=== PATIENT | female | born 1940 | race Caucasian/White ===

== ENCOUNTER 2016-05-19 09:30 | Inpatient (IN) | payer MEDICARE, OTHER ==
--- NOTE | 2016-05-15 18:53 | PREOPHP ---
DATE OF ADMISSION: 05/20/2016 The patient is coming on Monday for a surgical procedure. HISTORY OF PRESENT ILLNESS: This is a 75-year-old age, 0, para 0, abortions 0. This patien t had a history of previous total abdominal hysterectomy and right salpingo-oophorectomy, appendecto my, right knee surgery, left ovarian cyst. This patient had been complaining of some mass that is c oming out of her vagina with constipation. She is hypertensive with hypercholesterol and she was fo und to have a vaginal atrophy with a large rectocele. The patient was advised to have this procedur e done, her rectocele repair, if she was symptomatic. She states that she has pain, extremely sympt omatic recently, with severe constipation and inability to have a normal life since she feels that p ressure constantly in the rectum. The patient was a chronic smoker with sleep apnea as well. She h as been seeing Dr. Cat. She had a previous cervical cancer and a [facility] RSO, early cancer. She is o n thyroid medication and medication for her blood pressure and estrogen cream. The patient also had an appendectomy and right knee surgery. SOCIAL HISTORY: She only drinks occasionally socially and she still smokes sometimes. ALLERGIES: SHE HAS NO KNOWN ALLERGIES. MEDICATIONS: 1. Benazepril 10 mg. 2. Carvedilol 25 mg. 3. Levothyroxine 100 mcg. 4. Zetia 10 mg. PHYSICAL EXAMINATION: VITAL SIGNS: She is 64 inches. She weighs 130 pounds. BMI is 22.4. Blood pressure has been contr olled to 140/90, and she is afebrile. GENERAL APPEARANCE: Good. EAR, NOSE, AND THROAT. Normal. NECK: Normal. CHEST: Clear. HEART: Normal sinus rhythm. LUNGS: Clear. ABDOMEN: Soft, nontender. No masses. GENITALIA: With an absent uterus with a very large rectocele that is protruding to a grade III to I V. EXTREMITIES: Normal with normal pulses. No edema. RECTAL: Noncontributory. PLAN: The patient is advised for a large rectocele repair. She has been advised of the possible ri sks and possible complications of the procedure with her alternatives and options. Written informat ion was provided. She had no more questions and agreed to go ahead with the procedure with full und erstanding and no more questions. Dictated By: SHYANN MEJIAS/WILFRID Conf#: [id number] DID#: [id number]
[~2016-05-19] VITALS: Ht 162.6 cm; Wt 57.7 kg
--- NOTE | 2016-05-25 09:45 | CONS ---
DATE OF ADMISSION: 06/23/2016 DATE OF CONSULTATION: 05/20/2016 PREOPERATIVE MEDICAL CONSULTATION: SCHEDULED DATE OF SURGERY: 05/20/2016. Dear Dr. Kim: Thank you very much for allowing me to participate in the care of Ms. Thompson. She is a charming 75 -year-old female who is being brought in electively by yourself for rectocele repa ir. It is my understanding this will be a posterior approach. PAST MEDICAL HISTORY: 1. Chronic obstructive pulmonary disease. 2. Rectocele. 3. History of Graves' disease with Graves' ophthalmopathy. 4. Status post I-131 ablation with hypothyroidism. 5. Usual childhood diseases. 6. Organic heart disease - CHF, systolic and diastolic. 7. Obstructive sleep apnea. 8. Hyperlipidemia. 9. Vitamin D deficiency. 10. Remote history of TIA. 11. Osteoporosis. 12. Colonic polyposis. 13. Osteoarthrosis/DJD. 14. Allergic rhinitis. 15. Status post orbital decompression surgery. 16. Status post appendectomy. 17. Status post ____. 18. Status post sinus surgery. 19. Status post T and A. ALLERGIES: SHE HAS NO KNOWN MEDICAL ALLERGIES, BUT SHE IS INTOLERANT OF STATINS AND SEPARATELY INTO LERANT OF FIBRATES AND SEPARATELY INTOLERANT OF NIACIN. MEDICATIONS: 1. She has a CPAP device. 2. Lisinopril 40 mg a day. 3. Carvedilol 25 b.i.d. 4. Raloxifene 60 mg a day. 3. Levothyroxine 88 mcg a day. 4. Zetia 10 mg a day. HABITS: She smokes 8 to 10 cigarettes a day. No alcohol, 1 to 2 cups of coffee per day. No usage of recreational drugs. VACCINES: She had tetanus and pneumococcal vaccines administered 03/23/2008. SOCIAL HISTORY: She was born in [place], [place] and raised there. She has 3 years of college without experience. 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 She is and lives alone. FAMILY HISTORY: Negative for coronary artery disease, negative for diabetes, positive for hypertens ion, positive for stroke. Negative for asthma, negative for glaucoma. Positive for migraine, posit sincere for melanoma, negative for colon cancer, negative for breast cancer, negative for anesthesia cal ctions. REVIEW OF SYSTEMS: HEAD AND EYES: Fully negative. ENT: Negative. RESPIRATORY: Negative. CARDIAC: Negative. GASTROINTESTINAL: Negative. Her last colonoscopy was 02/2011 and negative. HEMATOLOGIC: Fully negative. UROLOGIC: Negative. GYNECOLOGIC: Negative. She is G0, P0, AB 0. MUSCULOSKELETAL: Negative. NEUROLOGIC: Negative. PSYCHIATRIC: Negative. ENDOCRINE: Negative. DERMATOLOGIC: Negative. PHYSICAL EXAMINATION: GENERAL: At the time of physical exam, she has a height of 5 feet 4 1/2 inches, weight 128.7, tempe rature 98.2, pulse 64, blood pressure is 120/80. HEENT: NC/AT; PERRL, EOMI, anicteric, fundi are without ____; tympanic membranes are without ____; oropharynx demonstrates no lesions. NECK: Supple. There is a midline trachea. There is no thyromegaly; pulses are 2+ without bruits. RESPIRATORY: Clear to auscultation and percussion. CARDIAC: Demonstrates no JVD, a regular rate and rhythm without rubs, murmurs or gallops. However, she does have a PMI that is diffuse and laterally displaced. ABDOMEN: Soft, nontender, active bowel sounds, no hepatosplenomegaly, no CVA tenderness, no hernias and no bruits; pelvic and rectal exams are as per the dictation of Dr. Kim. NEUROLOGIC: Nonfocal. LABORATORY DATA: Sodium 146, potassium 4.1, chloride 104, bicarbonate 26, BUN 19, creatinine 0.8, r andom blood sugar 106. White count 9.4, hemoglobin 14.9, hematocrit 45.7, platelet count 222. Prot sky 11.6 with an INR of 0.99, PTT is 28 seconds. Urinalysis 1.010, pH of 6, dipsticks negative. EK G demonstrates sinus rhythm at 60 with intervals 0.18, 0.15, 0.46 and axis of -15 degrees, left bund le branch block with LAFH, chest x-ray was unremarkable. ASSESSMENT AND PLAN: Preoperative medical consultation prior to elective rectocele repair. At this time, I find Ms. Thompson to be an acceptable surgical candidate and concur with your plans to proceed with surgery. She is at average surgical risk to slightly above-average surgical risk as compared to her age-matched peers. This is on the basis of the known cardiac dysfunction. She should do wel l using the standard and routine anesthesia precautions. Please see be aware, however, of the volum e status as you work with her. Respectively yours, Dictated By: YADIRA FLANNERY MD, JR/WILFRID Conf#: [id number] DID#: [id number] CC: SHYANN KIM MD;*EndCC*
--- NOTE | 2016-06-19 02:50 | PREOPHP ---
DATE OF ADMISSION: 06/23/2016 HISTORY OF PRESENT ILLNESS: This is a 75-year-old female, 0, para 0. This patient had a hi story of a previous abdominal hysterectomy, right salpingo-oophorectomy, appendectomy, right knee santos rgery, left ovarian cyst. The patient has been complaining of a mass that was protruding out of her vagina with constipation. She is hypertensive with high cholesterol. She was found to have vagina l atrophy with a large rectocele. The patient was advised to have this procedure done and she has b een stating that she has severe constipation and inability to have a normal life since she feels thi s vaginal pressure constantly. The patient was a chronic smoker with sleep apnea. She was seen by Dr. Cat. She had previous cervical cancer and a [facility] RSO was done because of that. She is on thyr oid medication and medication for blood pressure and estrogen cream. The patient also had an append ectomy and right knee surgery. SOCIAL HISTORY: She does not drink, and she still smokes. ALLERGIES: SHE IS NOT ALLERGIC TO ANY MEDICATIONS. MEDICATIONS: 1. Benazepril 10 mg. 2. Carvedilol 25. 3. Levothyroxine 100. 4. Zetia 10 mg. PHYSICAL EXAMINATION: VITAL SIGNS: She is 64 inches. She weighs 130. Her BMI is 22.4. Blood pressure has been controll ed to 140/90 and she is afebrile. GENERAL APPEARANCE: Good. EAR, NOSE AND THROAT: Normal. NECK: Normal. normal. CHEST: Clear. HEART: Normal sinus rhythm. LUNGS: Clear. ABDOMEN: Soft, nontender, no masses. GENITALIA: With an absent uterus with a very large rectocele that is protruding to a grade III to I V. EXTREMITIES: Normal with no edema. RECTAL: Noncontributory. The patient has been advised to have a rectocele repair. DIAGNOSES: 1. Rectocele grade III to IV. 2. Constipation. PLAN: She has been advised of the possible risks and possible complications of the procedure with h er alternatives and options. Written information was provided. She had no more questions and agree d to go ahead with the procedure with full understanding and no more questions. Dictated By: SHYANN MEJIAS/NTS Conf#: [id number] DID#: [id number]
--- NOTE | 2016-06-21 15:08 | CONS ---
DATE OF ADMISSION: 06/23/2016 DATE OF CONSULTATION: TYPE OF CONSULTATION: Preoperative medical SCHEDULED DATE OF SURGERY: 06/23/[address] Abarca, Thank you very much for allowing me to participate in the care of Ms. Thompson. She is a charming 75-y ear-old female who is being brought in electively by yourself for a rectocele repair/poste rior repair. At this time, she informs me that she is doing relatively well. She has not had any s ignificant bleeding. She denies any fever, chills, or sweats or any weight loss. PAST MEDICAL HISTORY: 1. Chronic obstructive pulmonary disease. 2. Rectocele. 3. Graves' disease. 4. Status post I-131 with hypothyroidism. 5. Graves' ophthalmopathy 6. Usual childhood diseases. 7. 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 8. Obstructive sleep apnea. 9. Hyperlipidemia. 10. Vitamin D deficiency. 11. Remote history of transient ischemic attack. 12. Osteoporosis. 13. Colon polyps. 14. Osteoarthrosis/DJD. 15. Allergic rhinitis. 16. Status post orbital decompression surgery for Graves' ophthalmopathy. 17. Status post appendectomy. 18. Status post CE and IOL left eye. 19. Status post T and A. 20. Status post sinus surgery. ALLERGIES: SHE HAS NO KNOWN MEDICAL ALLERGIES, BUT SHE IS INTOLERANT OF STATINS, FIBRATES AND NIACI N. CURRENT MEDICATION REGIMEN: 1. Lisinopril 40 mg once a day. 2. Carvedilol 25 mg b.i.d. 3. Raloxifene 60 mg once a day. 4. Levothyroxine 88 mcg once a day. 5. She wears a CPAP device at night. HABITS: She smokes 1/2 pack of cigarettes per day. No alcohol, no recreational drugs. SOCIAL HISTORY: She was born in [place], [place] and raised there. She has 3 years of college without experience. She is . 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 FAMILY HISTORY: Negative for coronary artery disease. Negative for diabetes. Positive for hyperte nsion. Positive for stroke. Negative for asthma. Negative for glaucoma. Positive for migraine. Positive for melanoma. Negative for colon cancer. Negative for breast cancer. Negative for anesth esia reactions. REVIEW OF SYSTEMS: HEAD AND EYES: Fully negative. ENT: Negative. RESPIRATORY: Negative. CARDIAC: Negative. She can climb 3 flights of stairs. GASTROINTESTINAL: Negative. She had negative colonoscopy in 02/2011. HEMATOLOGIC: Negative. UROLOGIC: Negative. GYNECOLOGIC: Negative. She is G0, P0, AB0. PSYCHIATRIC: Negative. ENDOCRINE: Negative. NEUROLOGIC: Negative. GENERAL: Without note. PHYSICAL EXAMINATION: VITAL SIGNS: At the time of physical exam, she has a height of 5 feet 4-3/4 inches, weight 130.2, b lood pressure 154/80, pulse 80, temperature 98.4, respirations 16. HEENT: NC/AT; PERRL, EOMI, anicteric, fundi are without note; tympanic membranes are without note; oropharynx demonstrates no lesions. NECK: Supple. There is a midline trachea. There is no thyromegaly; pulses are 2+ without bruits. RESPIRATORY: Clear to auscultation and percussion. CARDIAC: Demonstrates no JVD, a regular rate and rhythm. There are no gallops. PMI is diffuse and laterally displaced. ABDOMEN: Soft, nontender, active bowel sounds, no hepatosplenomegaly, no CVA tenderness, no hernias and no bruits. EXTREMITIES: Demonstrate no clubbing, cyanosis, or edema. NEUROLOGIC: Nonfocal. PELVIC AND RECTAL: Are as per the dictation of Dr. Abarca. LABORATORY DATA: Sodium 144, potassium 3.9, chloride 104, bicarbonate 21, BUN 14, creatinine 0.6, r andom blood sugar 76. White count 7.6, hemoglobin 15.1, hematocrit 46.4, platelet count is 207. Pr o time 11.6 with an INR of 0.99, PTT is 32 seconds. Urinalysis 1.025, pH of 6, dipsticks negative. EKG is sinus at 60 with intervals 0.18, 0.15, 0.46 and axis of -15 degrees, left bundle branch bloc k and left anterior superior hemiblock. Imaging studies are attached. ASSESSMENT AND PLAN: Preoperative medical consultation prior to elective posterior repair for recto jt. At this time, I find Ms. Thompson to be an acceptable surgical candidate and concur with your pl ans to proceed with surgery. She is at average surgical risk as compared to her age-matched peers a nd should do well using all standard and routine anesthesia precautions. Please note that her main risk will be from cardiac issues. However, she is well compensated at this time. Respectively yours, Dictated By: YADIRA FLANNERY MD, JR/WILFRID Conf#: [id number] DID#: [id number]
[2016-06-23] VITALS (23 sets, daily range): BP systolic 122–167; BP diastolic 60–80; PULSE 53–70; RESP 16–21; Ht 162.6 cm; Wt 57.7 kg
[2016-06-23] MEDS ORDERED: CEFAZOLIN 2 GM/50 ML (PMX) 50 ML IVPB ONE (05:30)
[2016-06-23] MEDS ORDERED: BENA40TA41 PO (06:51)
[2016-06-23] MEDS ORDERED: CARV25TA79 PO (06:51)
[2016-06-23] MEDS ORDERED: EZET10TA3 PO (06:51)
[2016-06-23] MEDS ORDERED: LEVO88TA3 PO (06:51)
[2016-06-23] MEDS ORDERED: LIDOCAINE 1%/EPI 30 ML INJ ONE (07:07)
[2016-06-23] MEDS ORDERED: THROMBIN 5000 UNIT VIAL ONE (07:07)
--- NOTE | 2016-06-23 08:00 | HPN ---
Date/Time of Note Date/Time of Note DATE: 06/23/16 TIME: 08:00 Interval H&P Admission Note Pt. seen H&P reviewed: No system changes SHYANN KIM MD Jun 23, 2016 08:00
[2016-06-23] MEDS ORDERED: MEPERIDINE 100 MG INJ ONE (08:01)
[2016-06-23] MEDS ORDERED: LIDOCAINE 2% (SDV) 5 ML INJ ONE (08:01)
[2016-06-23] MEDS ORDERED: PROPOFOL 20 ML ONE (08:01)
[2016-06-23] MEDS ORDERED: CEFAZOLIN 1 GM INJ ONE (08:16)
[2016-06-23] MEDS ORDERED: ATROPINE 1 MG/10 ML SYRINGE ONE (08:16)
[2016-06-23] MEDS ORDERED: HYDROmorphONE 1 MG/ML SYG IV PRN (08:30)
[2016-06-23] MEDS ORDERED: ZOLPIDEM 5 MG TAB PO PRN (08:30)
[2016-06-23] MEDS ORDERED: KETOROLAC 30 MG INJ IV PRN (08:30)
[2016-06-23] MEDS ORDERED: HYDROCODONE/APAP (5/325) TAB PO PRN (08:30)
[2016-06-23] MEDS ORDERED: DIPHENHYDRAMINE 50 MG CAP PO PRN (08:30)
[2016-06-23] MEDS ORDERED: EPHEDrine SULFATE 50 MG/5 ML SYG ONE (08:32)
[2016-06-23] MEDS: BENAZEPRIL 40 MG TAB PO SCH (09:00)
[2016-06-23] MEDS: EZETIMIBE 10 MG TAB PO SCH (09:00)
[2016-06-23] MEDS ORDERED: FENTAnyl 50 MCG/ML VIAL IV PRN ×2 (09:30)
[2016-06-23] MEDS ORDERED: LABETALOL HCL 20MG INJ IV PRN (09:30)
[2016-06-23] MEDS ORDERED: ONDANSETRON 4 MG INJ IV PRN (09:30)
[2016-06-23] MEDS ORDERED: hydrALAzine 20 MG INJ IV PRN (09:30)
[2016-06-23] MEDS ORDERED: MIDAZOLAM 1 MG/ML 2 ML INJ IV PRN (09:30)
[2016-06-23] MEDS ORDERED: morphine (1 MG/ML) 10ML SYRINGE IV PRN ×2 (09:30)
[2016-06-23] MEDS ORDERED: HYDROmorphONE (0.2 MG/ML) 10ML SYG IV PRN ×2 (09:30)
[2016-06-23] MEDS ORDERED: METOCLOPRAMIDE 10 MG INJ IV PRN (09:30)
[2016-06-23] MEDS ORDERED: EPHEDrine SULFATE 50 MG/5 ML SYG IV PRN (09:30)
[2016-06-23] MEDS ORDERED: MEPERIDINE 25 MG INJ IV PRN (09:30)
[2016-06-23] MEDS ORDERED: DIPHENHYDRAMINE 50 MG INJ IV PRN (09:30)
--- NOTE | 2016-06-23 09:37 | OPPN ---
Date/Time of Note Date/Time of Note DATE: 06/23/16 TIME: 09:34 Operative/Procedure Note Pre-Operative Diagnosis LARGE RECTOCELE CONSTIPATION Post-Operative Diagnosis SAME Procedure POSTERIOR REPAIR Surgeon: SHYANN KIM MD Anesthesiologist: FRED SYLVESTER MD Implants/Grafts: Not applicable Specimens VAGINAL MUCOSA Complications: None Anesthesia type: general SHYANN KIM MD Jun 23, 2016 09:37
--- NOTE | 2016-06-23 10:58 | OPR ---
DATE OF OPERATION: 06/23/2016 OPERATION PERFORMED: Posterior repair. PREOPERATIVE DIAGNOSES: Large rectocele and constipation. POSTOPERATIVE DIAGNOSES: Large rectocele and constipation. SURGEON: Shyann Abarca MD ANESTHESIOLOGIST: Dr. Rangel Sotelo COMPLICATIONS: None. DESCRIPTION OF PROCEDURE: The patient was given general anesthesia, placed in the lithotomy positio n. The perineal and vaginal area were prepped and draped and a Edouard catheter was placed in the teresa dder. A transverse incision was made at the perineum and the injection of Xylocaine and epinephrine was injected all the way up to the top of the vaginal cuff. There was a large rectocele. The inje ction of Xylocaine and epinephrine was given right underneath the vaginal mucosa, the rec tocele from the posterior vaginal mucosa. A midline incision was made all the way up to the vaginal cuff, and the reduction of the rectocele was done with interrupted sutures with #2-0 Vicryl. The v aginal mucosa was trimmed and the vagina was closed with interrupted sutures with #2-0 Vicryl. At t he perineal area, the levator ani muscle, a suture was placed with 0 Vicryl from one side to the oth er side, lifting the perineum. The rest of the perineum was closed as a regular episiotomy with 2-0 Vicryl and 3-0 Vicryl. Xeroform gauze was left in the vagina. The patient tolerated the procedure well and left the OR awake and stable. Sponge counts and instrument counts were correct. Intraven ous antibiotics were given for prophylaxis. Blood loss was minimal. The urine was clear at the end of the procedure. Dictated By: SHYANN MEJIAS/WILFRID Conf#: [id number] DID#: [id number]
[2016-06-23] MEDS: METOCLOPRAMIDE 10 MG TAB PO SCH ×2 (12:00→18:00)
[2016-06-23] MEDS: LACTATED RINGER'S 1,000 ML IV SCH ×2 (12:36→18:24)
[2016-06-23] MEDS: CEFAZOLIN 1 GM/50 ML (PMX) 50 ML IVPB SCH ×2 (14:49→21:52)
[2016-06-24 05:19] LABS: ADD SCAN DIFF NO
[2016-06-24 05:47] LABS: BASOPHILS % 0.4 % (0.0-2.0); EOSINOPHILS # 0.2 10^3/ul (0.0-0.5); EOSINOPHILS % 1.6 % (0.0-7.0); HEMOGLOBIN 13.5 g/dl (12.0-16.0); LYMPHOCYTES # 1.9 10^3/ul (0.8-2.9); LYMPHOCYTES % 19.1 % (15.0-51.0); MEAN CORPUSCULAR HEMOGLOBIN 30.5 pg (29.0-33.0); MEAN CORPUSCULAR HGB CONC 32.9 g/dl (32.0-37.0); MEAN CORPUSCULAR VOLUME 92.8 fl (82.0-101.0); MEAN PLATELET VOLUME 11.8 fl (7.4-10.4); MONOCYTE # 0.9 10^3/ul (0.3-0.9); MONOCYTES % 9.4 % (0.0-11.0); NEUTROPHIL # 6.8 10^3/ul (1.6-7.5); NEUTROPHILS % 69.2 % (39.0-77.0); PLATELET COUNT 203 10^3/UL (140-415); RED BLOOD COUNT 4.42 10^6/ul (4.20-5.40); RED CELL DISTRIBUTION WIDTH 12.9 % (11.5-14.5); WHITE BLOOD COUNT 9.8 10^3/ul (4.8-10.8)
[2016-06-24 05:58] LABS: CREATININE 0.79 mg/dl (0.44-1.00)
[2016-06-24] MEDS: METOCLOPRAMIDE 10 MG TAB PO SCH ×3 (06:00→12:00)
[2016-06-24] MEDS: CEFAZOLIN 1 GM/50 ML (PMX) 50 ML IVPB SCH (06:15)
[2016-06-24] MEDS ORDERED: LEVOTHYROXINE 88 MCG TAB PO SCH (07:00)
[2016-06-24 08:09] VITALS: BP 171/80; RESP 18
[2016-06-24] MEDS: BENAZEPRIL 40 MG TAB PO SCH (09:00)
[2016-06-24] MEDS: EZETIMIBE 10 MG TAB PO SCH (09:35)
[2016-06-24 09:40] VITALS: BP 174/77; PULSE 78
[2016-06-24] MEDS: LACTATED RINGER'S 1,000 ML IV SCH (10:44)
--- NOTE | 2016-06-24 13:58 | PDOCDIS ---
Discharge Instructions DIAGNOSIS Discharge Diagnosis: Status post repair rectocele; hypothyroidism; organic heart diseaseCHF; os CONDITION Patient Condition: Good HOME CARE INSTRUCTIONS: Special Diet: Regular ACTIVITY: Activity Restrictions: Slowly Increase Activity Do not operate Power Tool FOLLOW UP/APPOINTMENTS Appointments Follow-up with Dr. Stacie Abarca as scheduled; follow-up with Dr. Cat 3 weeks YADIRA CAT MD Jun 24, 2016 13:58
--- NOTE | 2016-06-24 16:56 | DS ---
DATE OF ADMISSION: 06/23/2016 DATE OF DISCHARGE: 06/24/2016 HISTORY: This is a 75-year-old female, 0, para 0 with a history of previous abdominal hyste rectomy, right salpingo-oophorectomy, appendectomy, right knee surgery, left ovarian cyst. The kayden ent had a vaginal protrusion of the bowel as rectocele, large rectocele which had been giving her gr eat difficulties to have bowel movements with severe constipation and with history of vaginal atroph y. The patient came here for a rectocele repair. Dr. 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 The patient did very well overnight. The packing was remov ed this morning. She is not actively bleeding. She is passing gas. She is voiding well. She is e ating well. She is tolerating diet. She is not in pain at all, for which she has been given ibupro fen p.r.n. to go home with and she should go home today with further instructions and to see me in t he office in a week or earlier if she had any problems. She is afebrile and her laboratory testing was with hemoglobin of 13.5 and hematocrit of 41. The patient left in good and stable condition and with further instructions. Dictated By: SHYANN MEJIAS/WILFRID Conf#: [id number] DID#: [id number]
== END 2016-06-24 16:38 | disposition home or self-care (01) | DRG 748 ==
LOC: REC 06-23 05:25 → PP2 06-23 11:19
PROVIDERS: ADMIT Obstetrics & Gynecology; ATTEND Obstetrics & Gynecology
PROC: 0JQC0ZZ Repair Pelvic Region Subcutaneous Tissue and Fascia, Open Approach (ICD-10-PCS; principal; 2016-06-23 07:30)
DX: N81.6 Rectocele (principal); I10 Essential (primary) hypertension; K59.00 Constipation, unspecified; F17.200 Nicotine dependence, unspecified, uncomplicated; E78.00 Pure hypercholesterolemia, unspecified
CPT/HCPCS: 80051; 82565; 84520; 85025; 87086; 88305; J0461; J0690; J2175; J7120

== ENCOUNTER → 2017-06-30 | Outpatient (CLI) | END | disposition home or self-care (01) ==

== ENCOUNTER → 2018-01-08 | Outpatient (CLI) | END | disposition home or self-care (01) ==

== ENCOUNTER → 2018-05-28 | Outpatient (CLI) | payer MEDICARE, OTHER ==
[~2018-05-28] MED LIST: BENA40TA56 PO; CARV25TA79 PO; EZET10TA31 PO; LEVO88TA3 PO
--- NOTE | 2018-05-28 18:25 | CONS ---
Assessment/Plan Assessment/Plan Hospital Course (Demo Recall) 77-year-old female with severe osteoarthritis mostly affecting the medial compartment. Her last steroid injection helped her significantly for 6 weeks and a little bit for another 6 weeks. She has pain and swelling. She is currently not ready to discuss surgical options as her sister is battling cancer at this time. The patient also does continue to smoke. We will continue conservative management. Plan: Right knee steroid injection. If this fails will trial hyaluronic acid injections Smoking cessation Ice Follow-up 3 months. Assessment/Plan (Daily) Right knee aspiration and injection procedure: Risks and benefits aspiration reviewed with patient. The risks include infection, failure, pain, swelling, nerve/tendon/ligament damage. The patient verbalized understanding and verbal consent was obtained prior to procedure. The right knee was prepped in a sterile fashion with alcohol and betadine the site of aspiration was confirmed. Lateral approach was used. The skin and capsule was anesthetized with 3mL 1% lidocaine careful not to inject intra- articularly. The right knee was aspirated. 25 mL of clear synovial fluid was aspirated. The right knee was injected with 2mL 1% lidocaine, 2mL 0.25% bupivacaine, 40mg Kenalog. Injection flowed freely. Good hemostasis was achieved and no complications noted. The patient tolerated the procedure well. Limit activity and ice for 24-48 hours Consultation Date/Type/Reason Admit Date/Time Date of Consultation: May 28, 2018 Reason for Consultation Right knee pain Date/Time of Note DATE: 05/28/18 TIME: 18:16 Hx of Present Illness Is a 77-year-old female with a chief complaint of right knee pain. The pain began approximately years ago but is worse in the last couple weeks. She has had multiple steroid injections in the past. Last one was December [address] Calero. It only lasted 6-12 weeks. The patients pain is in the medial and lateral aspect of the right knee. Pain is not radiating to the lower leg. The pain is rated as a 5/10. However she feels more instability and weakness than pain. Patient denies complaints of numbness or tingling. The pain is exacerbated by climbing stairs and ambulation. Pain is not relieved by NSAID's. Patient has been taking Aleve on a p.r.n. basis as well as using ice. Duration: Years Injury: Yes, torn meniscus Walking tolerance: 1 block Limp: Yes Support: No Swelling: No Crepitation: Yes Instability: Yes Stairs: Places both feet on a step before proceeding to next Physical Therapy: No Injections: Yes. Last one in December 2017 NSAIDs: Aleve as needed Prior surgery: Right knee arthroscopy in 2008 Back pain: No Hip pain: No Risk of AVN : No Patient denies fever, chills, shortness of breath, chest pain, nausea/vomiting, constipation, diarrhea, numbness, and tingling. Past Medical History Hypertension Thyroid abnormality Cervical cancer Home Meds Reported Medications Levothyroxine Sodium* (Levothyroxine Sodium*) 88 Mcg Tablet, 88 MCG PO BEFORE BREAKFAST, #30 TAB 06/23/16 Ezetimibe* (Zetia*) 10 Mg Tablet, 10 MG PO DAILY, TAB 06/23/16 Carvedilol* (Carvedilol*) 25 Mg Tablet, 25 MG PO BID, #60 TAB 06/23/16 Benazepril Hcl* (Benazepril Hcl*) 40 Mg Tablet, 40 MG PO DAILY, #30 TAB 06/23/16 Allergies: Coded Allergies: No Known Drug Allergies (Verified Allergy, Unknown, 06/23/16) Past Surgical History Hysterectomy Right arthroscopic knee surgery by Dr. Calero 2008 Tonsillectomy Family History Significant Family History: no pertinent family hx Social History Alcohol Use: none Smoking Status: Current every day smoker (Half pack per day) Drug Use: none Exam/Review of Systems Exam Vitals Weight: 122 pounds Height: 5 foot 5 inches Heart Rate: 74 Blood Pressure: 185/83 Exam General: Alert, oriented x3. No Acute Distress. Heart: Regular rate and rhythm. Lungs: No respiratory distress. No accessory muscle use. Musculoskeletal: Right Knee This is a well developed female who is alert, oriented times three and in no apparent distress. Skin is intact over the right knee as well as the lower extremity with no abrasions, lacerations, or ulcerations. Observation of the patient's gait reveals an antal gic gait with Large varus thrust. Frontal plane alignment is varus. +2 effusion. There is pain on palpation of medial joint line. The patient demonstrates grinding anteriorly with ROM. Range of motion: 0 extension to approximately 120 degrees of flexion. There is pseudolaxity secondary to medial wear. Collateral ligament testing reveals no instability with varus or valgus stress at 0 and 30 degrees of flexion. Negative Mary's and negative posterior drawer. Neurovascularly intact with 5/5 EHL/tibialis anterior/gastroc. Sensation intact to light touch in a sural, saphenous, deep peroneal, superficial peroneal, medial and lateral plantar nerve distribution. Palpable, symmetric dorsalis pedis and posterior tibial pulses in both lower extremities. Hip examination normal. Imaging Imaging The patient received a standard set of films today that were personally reviewed. Imaging included a standing bilateral knee AP, PA flexion, merchant views and a dedicated lateral of the affected knee: There is varus alignment of the knee. There is complete loss of joint space in the medial compartment and moderate loss in the lateral and patellofemoral compartment(s). There is osteophyte formation. There is subchondral sclerosis. There are subchondral cysts. Degenerative changes are most severe in the medial compartment(s) ROSANNA SIMEON MD May 28, 2018 18:25
--- NOTE | 2018-05-29 14:11 | RADRPT ---
PROCEDURE: XR Knees. CLINICAL INDICATION: Bilateral knee pain. TECHNIQUE: Total of eight views. Weightbearing frontal, oblique, and lateral views of the both kne es. Patellar views of both knees. COMPARISON: Right knee radiographs dated 06/30/2017. FINDINGS: There is no fracture or dislocation. Vascular calcifications are present consistent with atherosclerosis. There is a right knee joint effu eleazar. There is no left knee joint effusion. There are degenerative changes with osteophytes arising from all 3 joint compartment margins bilatera lly. There is bilateral medial joint compartment compartment narrowing with right worse than left. Th ere is also mild deformity of the right medial joint compartment. There is no lytic or blastic lesion. There is no radiopaque foreign body. IMPRESSION: 1. Severe degenerative changes of the right knee. 2. Moderate degenerative changes of the left knee. 3. Right knee joint effusion. 4. Otherwise unremarkable study. RPTAT: QQ .Jordan Vergara MD, MD Date Time Electronically viewed and signed by .Jordan Vergara MD, MD on 05/29/2018 14:11 .R/
== END | disposition home or self-care (01) ==
LOC: HKI 14:21
PROVIDERS: ATTEND Orthopaedic Surgery Adult Reconstructive Orthopaedic Surgery
DX: M17.11 Unilateral primary osteoarthritis, right knee (principal); I10 Essential (primary) hypertension; E03.9 Hypothyroidism, unspecified; Z85.41 Personal history of malignant neoplasm of cervix uteri
CPT/HCPCS: 20610; 73564; G0463

== ENCOUNTER → 2018-09-05 | Outpatient (CLI) | payer MEDICARE, OTHER ==
--- NOTE | 2018-09-05 18:09 | CONS ---
Consult Date/Type/Reason Admit Date/Time Initial Consult Date Date/Time of Note DATE: 09/05/18 TIME: 18:03 Subjective This is a 77-year-old female follows up today for her right knee pain secondary to osteoarthritis. She had a steroid injection this past May. She only had 1 week of relief from the injection. She continues to be in severe pain and has feelings of instability when walking which limits her daily activities as well as her ability to take care of herself and low bones. 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 In addition she continues to smoke 0.5 packs/day. She would like to try another type of injection as well as possible bracing. Denies numbness and tingling. Objective Vitals Weight: 124 pounds Height: 5 foot 5 inch Temperature: 90.1 Heart Rate: 78 Blood Pressure: 150/68 Respiratory Rate: 12 Exam General: Alert, oriented x3. No Acute Distress. Heart: Regular rate and rhythm. Lungs: No respiratory distress. No accessory muscle use. Musculoskeletal: Right Knee This is a well developed female who is alert, oriented times three and in no apparent distress. Skin is intact over the right knee as well as the lower extremity with no abrasions, lacerations, or ulcerations. Observation of the patient's gait reveals an antalgic gait with Large varus thrust. Frontal plane alignment is varus. +2 effusion. There is pain on palpation of medial joint line. The patient demonstrates grinding anteriorly with ROM. Range of motion: 0 extension to approximately 120 degrees of flexion. There is pseudolaxity secondary to medial wear. Collateral ligament testing reveals no instability with varus or valgus stress at 0 and 30 degrees of flexion. Negative Mary's and negative posterior drawer. Neurovascularly intact with 5/5 EHL/tibialis anterior/gastroc. Sensation intact to light touch in a sural, saphenous, deep peroneal, superficial peroneal, medial and lateral plantar nerve distribution. Palpable, symmetric dorsalis pedis and posterior tibial pulses in both lower extremities. Hip examination normal. Results/Medications Home Meds Reported Medications Levothyroxine Sodium* (Levothyroxine Sodium*) 88 Mcg Tablet, 88 MCG PO BEFORE BREAKFAST, #30 TAB 06/23/16 Ezetimibe* (Zetia*) 10 Mg Tablet, 10 MG PO DAILY, TAB 06/23/16 Carvedilol* (Carvedilol*) 25 Mg Tablet, 25 MG PO BID, #60 TAB 06/23/16 Benazepril Hcl* (Benazepril Hcl*) 40 Mg Tablet, 40 MG PO DAILY, #30 TAB 06/23/16 Imaging Previous films of the patient that were obtained in clinic were personally rereviewed. Imaging included a standing bilateral knee AP, PA flexion, merchant views and a dedicated lateral of the affected knee: There is varus alignment of the knee. There is complete loss of joint space in the medial compartment and moderate loss in the lateral and patellofemoral compartment(s). There is osteophyte formation. There is subchondral sclerosis. There are subchondral cysts. Degenerative changes are most severe in the medial compartment(s) Assessment/Plan Hospital Course (Demo Recall) 77-year-old female with end-stage osteoarthritis of her right knee most severe in her medial compartment. On examination she has significant pseudolaxity as her knee goes into severe varus when bearing weight. At this time she is not ready for surgery and she is taking care of her sister who is scheduled for a large surgery early next month for her cancer. She would like to try hyaluronic acid injections as she has failed steroid injections. She is also interested in a brace. I believe a medial concrete bucket unloader brace with significantly benefit the patient as she has significant varus deformity with instability. Plan: Right knee Monovisc injection Prescription for right medial concrete bucket unloader brace Ice Low-impact activity Activity modification Follow-up 3 months Assessment/Plan (Daily) Right knee viscosupplementation injection procedure: Risks and benefits of viscosupplementation injection reviewed with patient. The risks include infection, failure, pain, swelling, nerve/tendon/ligament damage. The patient verbalized understanding and verbal consent was obtained prior to procedure. The right knee was prepped in a sterile fashion with alcohol and betadine the site of injection was confirmed. Lateral approach was used. The skin and capsule was anesthetized with 3mL 1% lidocaine. The right knee was injected with Monovisc. Injection flowed freely. Good hemostasis was achieved and no complications noted. The patient tolerated the procedure well. Limit activity and ice for 24-48 hours ROSANNA SIMEON MD September 05, 2018 18:09
== END | disposition home or self-care (01) ==
LOC: HKI 09:19
PROVIDERS: ATTEND Orthopaedic Surgery Adult Reconstructive Orthopaedic Surgery
DX: M17.11 Unilateral primary osteoarthritis, right knee (principal)
CPT/HCPCS: 20610; G0463; J7327